=== PATIENT | female | born 1950 | race Caucasian/White ===

== ENCOUNTER 2020-03-05 05:34 | Observation (INO) | payer MEDICARE, OTHER ==
[~2020-03-05 05:34] MED LIST: CEFAZOLIN 2 GM/D5W RTU 2 GM/50 ML RTUPB IV ONE
[2020-03-05] MEDS ORDERED: MIDAZOLAM 2 MG/2 ML INJ ONE (07:03)
[2020-03-05] MEDS ORDERED: KETAMINE HCL INJ 500 MG/10 ML VIAL ONE (07:03)
[2020-03-05] MEDS ORDERED: PROPOFOL INJ 200 MG/20 ML VIAL IV ONE (07:04)
[2020-03-05] MEDS ORDERED: KETOROLAC TROMETHAMINE INJ/PF 30 MG/1 ML SDV ONE (07:11)
[2020-03-05] MEDS ORDERED: BUPIVACAINE HCL 0.25 % INJ/PF (2.5 MG/1 ML) 30 ML VIAL ONE (07:11)
[2020-03-05] MEDS ORDERED: LIDOCAINE 1% INJ-PF (10 MG/ML) 30 ML SDV ONE (07:11)
[2020-03-05] MEDS ORDERED: VANCOMYCIN HCL INJ 1000 MG VIAL ONE ×2 (07:11→08:02)
[2020-03-05] MEDS ORDERED: FENTANYL CITRATE INJ/PF 100 MCG/2 ML AMPUL ONE (07:16)
[2020-03-05] MEDS ORDERED: OXYCODONE HCL SR 10 MG TABLET PO ONE ×3 (07:29→10:58)
[2020-03-05] MEDS ORDERED: CEFAZOLIN INJ 1 GM VIAL ONE (08:02)
[2020-03-05] MEDS ORDERED: TRANEXAMIC ACID INJ/PF 1,000 MG/10 ML SDV ONE (08:03)
[2020-03-05 08:05] LABS: ABSOLUTE EOSINOPHILS # (AUTO) 0.1 10^3/uL (0.0-0.6); ABSOLUTE LYMPHOCYTES (AUTO) 1.5 10^3/uL (0.5-4.7); ABSOLUTE MONOCYTES (AUTO) 0.4 10^3/uL (0.1-1.4); ABSOLUTE NEUT (AUTO) 3.6 10^3/uL (1.7-8.2); BASOPHILS % (AUTO) 0.6 % (0-2); EOSINOPHILS % (AUTO) 2.4 % (0-6); HEMOGLOBIN 13.5 g/dL (12.0-15.5); LYMPHOCYTES % (AUTO) 26.4 % (13-45); MEAN CORPUSCULAR HEMOGLOBIN 28.3 pg (27.0-33.4); MEAN CORPUSCULAR HGB CONC 33.8 g/dL (32.0-36.0); MEAN CORPUSCULAR VOLUME 84 fl (80-97); MONOCYTES % (AUTO) 7.6 % (3-13); PLATELET COUNT 211 10^3/uL (150-450); RED BLOOD COUNT 4.76 10^6/uL (3.72-5.28); RED CELL DISTRIBUTION WIDTH 13.8 % (11.5-14.0); TOTAL CELLS COUNTED % (AUTO) 100 %; WHITE BLOOD COUNT 5.7 10^3/uL (4.0-10.5)
[2020-03-05 08:26] LABS: ANION GAP 6 (5-19); BLOOD UREA NITROGEN 24 mg/dL (7-20); CALCIUM 8.9 mg/dL (8.4-10.2); CARBON DIOXIDE 29 mmol/L (22-30); CHLORIDE 106 mmol/L (98-107); GLUCOSE 114 mg/dL (75-110); POTASSIUM 4.2 mmol/L (3.6-5.0)
[2020-03-05] MEDS ORDERED: ONDANSETRON HCL INJ/PF 4 MG/2 ML SDV IV PRN ×2 (08:53→10:40)
[2020-03-05] MEDS ORDERED: FENTANYL CITRATE INJ/PF 100 MCG/2 ML AMPUL IV PRN ×3 (08:53)
[2020-03-05] MEDS ORDERED: DIPHENHYDRAMINE HCL 50 MG/ML VIAL IV PRN (08:53)
[2020-03-05] MEDS ORDERED: PROMETHAZINE HCL INJ 25 MG/1 ML VIAL IV PRN ×2 (08:53)
[2020-03-05] MEDS ORDERED: MEPERIDINE HCL/PF INJ 25 MG/1 ML DISP.SYRIN IV PRN (08:53)
--- NOTE | 2020-03-05 09:49 | EKG REPORT ---
SEVERITY:- OTHERWISE NORMAL ECG - SINUS RHYTHM BORDERLINE LEFT AXIS DEVIATION : Confirmed by: Vera Paz 05-Mar-2020 09:48:41
--- NOTE | 2020-03-05 10:03 | Operative Report ---
Operative Report DATE OF SURGERY: 03/05/20 PREOPERATIVE DIAGNOSIS: Right primary hip osteoarthritis, severe POSTOPERATIVE DIAGNOSIS: Right primary hip osteoarthritis, severe OPERATION: Right total hip arthroplasty SURGEON: SARAH CAPELLAN JR ANESTHESIA: Spinal COMPLICATIONS: None ESTIMATED BLOOD LOSS: 200 cc PROCEDURE: Implants: [employer] a-fit size 10 femoral stem with standard offset, a R3 size 54 cup, and a standard 36 mm liner, a 0 neck length 36 mm Oxinium head BRIEF HISTORY: 69 year old female with severe degenerative arthritis of right hip, which has failed conservative treatment and has elected for a total hip arthroplasty. Risks include but are not limited to bleeding, infection, anesthesia, , injury to nerve or vessel, pain, scar, leg length inequality, dislocation, future surgery, and blood clots. Patient read through the pre-op counseling form and signed and consented for surgery on their right hip. OPERATIVE PROCEDURE: Patient was brought to the operating room on and underwent spinal anesthesia. 3 grams of Ancef and 1 g of vancomycin was given. After proper anesthesia was obtained, patient was positioned, padded, prepped, and draped in the usual sterile fashion on the operating room table. Appropriate time out was performed. An anterior approach to the hip was undertaken with meticulous hemostasis through the deep interval. A capsulectomy was performed followed by exposure of the femoral neck. The femoral neck was cut in line with the femoral broach and the femoral head was removed. The acetabulum was then exposed with three retractors in an atraumatic fashion. Soft tissue and osteophytes were removed. Medialization reaming was performed followed by anatomic reaming up to accept a 54 mm acetabulum. Wound was irrigated with dilute betadyne solution and the 54 mm acetabulum was impacted into correct position and stability checked by manipulating the impaction handle which rocked the pelvis. A standard liner was impacted into the shell with good stability. Potential impinging osteophytes were removed. Attention was then directed toward the femur, which was exposed with two retractors in an atraumatic fashion. A bone hook was placed to carefully perform releases along the superior capsule until the femur was safely delivered through the wound. A box closing machine operator was utilized followed by lateralization rasping and then broaching up to accept a 10 femur. With a standard offset neck and a 36 0 head, stability was good in flexion and extension with near equal leg lengths. The real standard offset femur was impacted into a copiously irrigated femoral canal. A 36 mm 0 neck length head was impacted on a clean dry femoral taper. The hip was irrigated and reduced, further irrigation with antibiotic solution, betadine solution, then antibiotic solution. Bleeders were coagulated with bovie cautery. The fascia was then closed with number 2 Stratofix; the subcutaneous tissue closed with interrupted inverted 2-0 monocryl then running 3-0 monocryl subcuticular. A silver dressing was then applied. All needle sponge and instrument counts were correct. Patient was awakened from sedation anesthesia and taken to recovery room in good condition. The patient has a BMI of 40.9, much of which is concentrated around the abdomen and thighs. Extra preparation was required for positioning the patient including pannus retraction. In addition the wound was deeper than usual requiring is increased time and effort to obtain adequate exposure safely and limit releases in order to obtain a stable hip. Due to the way to the leg manipulation during surgery was difficult requiring increased time and effort to both perform this procedure as well as trial ensuring stable construct. Because of these increased efforts, we are billing a 22 modifier.
[2020-03-05] MEDS: DIPHENHYDRAMINE HCL 50 MG/ML VIAL ONE ×2 (10:19→10:40)
[2020-03-05] MEDS ORDERED: ZOLPIDEM TARTRATE 5 MG TABLET PO PRN (10:40)
[2020-03-05] MEDS ORDERED: MAGNESIUM HYDROXIDE SUSP 30 ML UDCUP PO PRN (10:40)
[2020-03-05] MEDS ORDERED: MORPHINE SULFATE 10 MG/ML INJ IV PRN (10:40)
[2020-03-05] MEDS ORDERED: DIPHENHYDRAMINE HCL 50 MG CAPSULE PO PRN (10:57)
[2020-03-05] MEDS ORDERED: TRAMADOL HCL 50 MG TABLET PO PRN (10:57)
[2020-03-05] MEDS ORDERED: PHENYLEPHRINE HCL INJ/PF 10 MG/1 ML SDV ONE (11:01)
--- NOTE | 2020-03-05 13:02 | RADIOLOGY REPORT (SQ) ---
EXAM DESCRIPTION: HIP IN OPERATING RM IMAGES COMPLETED DATE/TIME: 03/05/2020 11:41 am REASON FOR STUDY: RIGHT HIP TOTAL ARTHROPLASTY ASSISTED WITH FLUORO IN OR M16.11 UNILATERAL PRIMARY OSTEOARTHRITIS, RIGHT HIP Z79.899 OTHER SNF (CURRENT) DRUG THERAPY COMPARISON: None. FLUOROSCOPY TIME: Less than 1 minute 2 images saved to PACS. TECHNIQUE: Intra-operative images acquired during surgical procedure to evaluate progress. NUMBER OF IMAGES: 2 LIMITATIONS: None. FINDINGS: 2 intraoperative fluoroscopic spot images were obtained over the course of a total hip art hroplasty. Images are submitted for administrative purposes only. Please refer to the operative rep ort for full details regarding this procedure. IMPRESSION: IMAGE(S) OBTAINED DURING PROCEDURE. COMMENT: Quality ID [id number]: Final reports for procedures using fluoroscopy that document radiation exp osure indices, or exposure time and number of fluorographic images (if radiation exposure indices are not available) Please consult full operative report of the attending physician for description of the procedure. TECHNICAL DOCUMENTATION: JOB ID: [id number] 2010 [employer]- All Rights Reserved Reading location - IP/workstation name: [email or web address]
--- NOTE | 2020-03-05 13:25 | RADIOLOGY REPORT (SQ) ---
EXAM DESCRIPTION: HIP RIGHT AP/LATERAL IMAGES COMPLETED DATE/TIME: 03/05/2020 11:36 am REASON FOR STUDY: post op pacu M16.11 UNILATERAL PRIMARY OSTEOARTHRITIS, RIGHT HIP Z79.899 OTHER [employer] (CURRENT) DRUG THERAPY COMPARISON: None. NUMBER OF VIEWS: Two view(s). TECHNIQUE: Digital radiographic images of the right hip post-procedure. LIMITATIONS: None. FINDINGS: BONES: No worrisome or unexpected findings post-procedure. DEVICE: Total hip replacement. Components of the device in appropriate location. SOFT TISSUES: No worrisome findings. Expected postoperative soft tissue changes. IMPRESSION: SATISFACTORY POSTOPERATIVE RIGHT HIP. TECHNICAL DOCUMENTATION: JOB ID: [id number] 2010 [employer]- All Rights Reserved Reading location - IP/workstation name: [email or web address]
--- NOTE | 2020-03-05 13:50 | RADIOLOGY REPORT (SQ) ---
EXAM DESCRIPTION: NO CHG FLUORO COMPLETE DATE/TIME: 03/05/2020 11:41 am REASON FOR STUDY: RIGHT HIP TOTAL ARTHROPLASTY ASSISTED WITH FLUORO IN OR M16.11 UNILATERAL PRIMARY OSTEOARTHRITIS, RIGHT HIP Z79.899 OTHER [employer] (CURRENT) DRUG THERAPY FINDINGS: Please see combined report for performance of procedure and radiologic supervision and int erpretation. IMPRESSION: Please see combined report for performance of procedure and radiologic supervision and i nterpretation. Reading location - IP/workstation name: [email or web address]
[2020-03-05] MEDS: KETOROLAC TROMETHAMINE INJ/PF 30 MG/1 ML SDV IV SCH (15:37)
[2020-03-05] MEDS: ACETAMINOPHEN 325 MG TABLET PO SCH ×2 (15:38→22:40)
[2020-03-05] MEDS: CEFAZOLIN SODIUM 2 GM in DEXTROSE 5%-WATER 100 ML IV SCH ×2 (15:42→22:39)
[2020-03-05] MEDS ORDERED: CEFAZOLIN 2 GM/D5W RTU 2 GM/50 ML RTUPB IV ONE (16:00)
[2020-03-05] MEDS: DOCUSATE SODIUM 100 MG CAPSULE PO SCH (17:22)
[2020-03-05] MEDS: OXYCODONE-ACETAMINOPHEN 5-325 MG TABLET PO PRN (20:37)
[2020-03-05] MEDS: CARVEDILOL 12.5 MG TABLET PO SCH (22:40)
[2020-03-06] MEDS: KETOROLAC TROMETHAMINE INJ/PF 30 MG/1 ML SDV IV SCH ×2 (06:26)
[2020-03-06] MEDS: ACETAMINOPHEN 325 MG TABLET PO SCH (06:26)
[2020-03-06] MEDS: PANTOPRAZOLE SODIUM 20 MG TABLET.DR PO SCH ×2 (06:27)
[2020-03-06 06:34] LABS: ABSOLUTE LYMPHOCYTES (AUTO) 0.8 10^3/uL (0.5-4.7); ABSOLUTE MONOCYTES (AUTO) 0.9 10^3/uL (0.1-1.4); ABSOLUTE NEUT (AUTO) 5.2 10^3/uL (1.7-8.2); BASOPHILS % (AUTO) 0.3 % (0-2); EOSINOPHILS % (AUTO) 0.5 % (0-6); HEMATOCRIT 34.6 % (36.0-47.0); HEMOGLOBIN 11.8 g/dL (12.0-15.5); LYMPHOCYTES % (AUTO) 10.9 % (13-45); MEAN CORPUSCULAR HEMOGLOBIN 28.6 pg (27.0-33.4); MEAN CORPUSCULAR HGB CONC 34.2 g/dL (32.0-36.0); MEAN CORPUSCULAR VOLUME 84 fl (80-97); MONOCYTES % (AUTO) 12.5 % (3-13); PLATELET COUNT 159 10^3/uL (150-450); RED BLOOD COUNT 4.13 10^6/uL (3.72-5.28); SEGMENTED NEUTROPHILS % (AUTO) 75.8 % (42-78); TOTAL CELLS COUNTED % (AUTO) 100 %; WHITE BLOOD COUNT 6.9 10^3/uL (4.0-10.5)
[2020-03-06 06:55] LABS: ANION GAP 5 (5-19); BLOOD UREA NITROGEN 30 mg/dL (7-20); CARBON DIOXIDE 24 mmol/L (22-30); CHLORIDE 107 mmol/L (98-107); GLUCOSE 146 mg/dL (75-110)
[2020-03-06] MEDS ORDERED: OMEGA-3 ACID ETHYL ESTERS 1 GM CAPSULE PO SCH (08:00)
[2020-03-06 08:09] VITALS: BP 134/58
[2020-03-06] MEDS: OXYCODONE-ACETAMINOPHEN 5-325 MG TABLET PO PRN (08:48)
[2020-03-06] MEDS ORDERED: EPA PO SCH (10:00)
[2020-03-06] MEDS ORDERED: FISH OIL PO SCH (10:00)
[2020-03-06] MEDS ORDERED: (PENDING PHARMACY ID) (Ascorbic Acid [Vitamin C] 250 MG) PO SCH (10:00)
[2020-03-06] MEDS ORDERED: (PENDING PHARMACY ID) (Irbesartan [Irbesartan] 300 MG) PO SCH (10:00)
[2020-03-06] MEDS ORDERED: LOSARTAN POTASSIUM 50 MG TABLET PO SCH (10:00)
[2020-03-06] MEDS ORDERED: PRENATAL VITAMIN W DHA CAPSULE PO SCH (10:00)
[2020-03-06] MEDS ORDERED: FOLIC ACID PO SCH (10:00)
[2020-03-06] MEDS ORDERED: CHOLECALCIFEROL (D3) 1,000 UNIT (25 MCG) TABLET PO SCH (10:00)
[2020-03-06] MEDS ORDERED: ASPIRIN 325 MG TABLET PO SCH (10:00)
[2020-03-06] MEDS ORDERED: IRON PO SCH (10:00)
[2020-03-06] MEDS ORDERED: OMEGA PO SCH (10:00)
[2020-03-06] MEDS ORDERED: DHA PO SCH (10:00)
[2020-03-06] MEDS ORDERED: ISOSORBIDE MONONITRATE 30 MG TAB.ER.24H PO SCH (10:00)
[2020-03-06] MEDS ORDERED: ASCORBIC ACID 500 MG TABLET PO SCH (10:00)
[2020-03-06] MEDS ORDERED: [UNRECOGNIZED DRUG - OTHER] PO SCH (10:00)
[2020-03-06] MEDS ORDERED: MULTIVITAMIN PO SCH (10:00)
[2020-03-06] MEDS: DOCUSATE SODIUM 100 MG CAPSULE PO SCH (10:05)
[2020-03-06] MEDS: CARVEDILOL 12.5 MG TABLET PO SCH (10:05)
[2020-03-07] MEDS ORDERED: CELECOXIB 100 MG CAPSULE PO SCH (18:00)
--- NOTE | 2020-03-10 13:26 | Discharge Summary ---
Discharge Summary (SDC) - Discharge Final Diagnosis: Severe right hip primary osteoarthritis Date of Surgery: 03/05/20 Discharge Date: 03/06/20 Condition: Stable Forms: Discharge POC-Adult Treatment or Instructions: Full details of postoperative instructions have been provided to the patient in the clinic. Additionally they should maintain their bandage in place for 10 days, and then changed to a dry dressing. They can take showers with this occlusive dressing but any further dressing should also be occlusive. No showers with the wound unprotected until cleared by me in the clinic. If the bandage falls off early or become saturated they can change as needed to another occlusive dressing. Follow-up with Dr. Matthew Capellan, orthopedic surgeon at [facility] for surgery, in 10 days. Call for an appointment. . [address], [place] [address] Prescriptions: Ondansetron HCl/Pf [Zofran Inj/Pf 4 mg/2 ml Sdv] 4 mg IV Q4HP PRN #20 vial PRN Reason: Referrals: MATTHEW CAPELLAN JR, DO [ACTIVE PROVISIONAL STAFF] - 03/16/20 9:30 am Respiratory Treatments at Home: Deep Breathing/Coughing Discharge Activity: Activity As Tolerated, No Driving, Keep Legs Elevated, No Lifting/Push/Pulling, Slowly Increase Activity, No tub bath, Walk Frequently Adaptive Devices on Discharge: Rolling Walker, Bedside Commode Report the Following to Your Physician Immediately: Shortness of Breath, Fever over 101 Degrees, Unusual Bleeding, Drainage-Yellow
== END 2020-03-06 10:20 | disposition home health service (06) ==
LOC: OROUT 05:34 → 4W 10:40
PROVIDERS: ADMIT Orthopaedic Surgery; ATTEND Orthopaedic Surgery
DX: M16.11 Unilateral primary osteoarthritis, right hip (principal); I10 Essential (primary) hypertension; E66.9 Obesity, unspecified; Z68.41 Body mass index [BMI] 40.0-44.9, adult; E78.00 Pure hypercholesterolemia, unspecified; Z79.899 Other long term (current) drug therapy; Z03.818 Encounter for observation for suspected exposure to other biological agents ruled out; Z79.1 Long term (current) use of non-steroidal anti-inflammatories (NSAID)
CPT/HCPCS: 27130; 36415; 85025; 80048; 73502; 73501; 93005; 93010; 97530 ×3; 97110 ×2; 97116 ×2; 97163; 97535; 97166; 01214; C1776; G0378 ×2; U0003; A9270 ×9; J2250; J0690 ×2; J1200; J3010; J3490 ×3; J1885 ×2; J2270; J2370; J2405; J7060; J2704; J3370; C9803; 87635